=== PATIENT | female | born 1990 | race Caucasian/White ===

== ENCOUNTER 2019-01-16 10:09 | Emergency (ER) | payer MEDICAID, SELFPAY ==
[2019-01-16 10:11] VITALS: BP 166/98; PULSE 65; RESP 18; TEMP 36.6; O2SAT 99; BMI 36.0
--- NOTE | 2019-01-16 10:20 | CT_ITS ---
STUDY: CT ABDOMEN AND PELVIS WITHOUT CONTRAST REASON FOR EXAM: Female, 28 years old. Right-sided flank pain. RADIATION DOSAGE (If Supplied By Facility): CTDIvol = ( 11.54 ) mGy, DLP = ( 724.01 ) mGycm TECHNIQUE: Transaxial images were obtained from the dome of the diaphragm to the symphysis pubis without oral contrast, and without intravenous contrast. Sagittal and coronal images were reconstructed. Individualized dose optimization techniques were used for this CT. COMPARISON: None. FINDINGS: Lung bases: Unremarkable. Heart: Unremarkable. Liver: Hepatic steatosis. No focal hepatic lesions. Gallbladder/biliary ducts: Unremarkable. Pancreas: Unremarkable. Spleen: Unremarkable. Adrenal glands: Unremarkable. Kidneys/ureters/bladder: Nondilated ureters. Bilateral symmetric noncontrast renal parenchyma. Normal urinary bladder. Uterus/adnexa/prostate: Small left cystic adnexa. Slightly distended endometrial canal (axial image 141 series 2). Slightly bulky uterus. Large bowel/small bowel: Mild fat placement within the colonic wall suggesting potential chronic bowel disease. No acute inflammatory changes. No perforation. No obstruction. No pneumatosis. Appendix: Unremarkable (axial image 83 series 2). Gastroesophageal junction/stomach: Unremarkable. Retroperitoneum/lymph nodes: No intra-abdominal free air. No ascites. No pathologically enlarged lymph nodes. Vascular: Unremarkable. Osseous structures: Unremarkable. Subcutaneous/soft tissues: Small fat-containing ability hernia. No acute process. CT/Abdomen/Pelvis without Cont IMPRESSION: No acute intraabdominal/pelvic findings PHOTOGEOLOGIST findings statistically physiologic Consider possible mild chronic bowel disease Electronically Signed: Prasad Ansari DO at 12:23 EDT Tel , Service support ,
--- NOTE | 2019-01-16 10:40 | ED.VIS.GEN ---
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 She is had no fever urine outputs have been unremarkable Past Medical History - Allergies and Home Meds Allergies/Adverse Reactions: Allergies ciprofloxacin [From Cipro] Allergy (Verified 01/16/19 10:11) Swelling BEE Allergy (Uncoded 01/16/19 10:11) Anaphylaxis Past Medical History: - Review of Systems ROS: - Includes as above General: Denies: Chills, Fever, Sweats Eyes: Denies: Visual changes - bilaterally, Diplopia ENT: Denies: Rhinorrhea, Sore throat Cardiovascular: Denies: Chest pain, Palpitations Respiratory: Denies: Dyspnea, Cough, Dyspnea on exertion Gastrointestinal: Reports: Abdominal pain, Nausea, Diarrhea. Denies: Vomiting, Melena, Hematochezia Genitourinary: Denies: Dysuria, Hematuria, Frequency Musculoskeletal: Denies: Back pain, Extremity Pain Skin: Denies: Rash, Wounds Neurological: Denies: Headache, Weakness, Numbness Physical Exam Vital Signs/Narrative: Vital Signs Temp Pulse Resp BP Pulse Ox 01/16/19 10:11 97.8 F 65 18 166/98 H 99 General: Well nourished, Well developed, No Acute Distress Head: Normocephalic, Atraumatic Eyes: Perrl, EOMI ENT: Moist mucous membranes, No rhinorrhea Neck: Supple, Nontender Cardiovascular: Regular rate, Regular rhythm, No murmurs Respiratory: No distress, CTA bilaterally, Chest nontender Abdomen: Soft, Nontender, Nondistended, Normal bowel sounds, - - Very nonspecific pain to the right upper quadrant it is really hard to even describe his pain rather a sensation, there is no rebound guarding organomegaly or fullness Back: Nontender, Normal Inspection Extremities: Nontender, No edema Skin: Normal color, No rash Neurological: Alert, Oriented x3, Cranial nerves II-XII grossly intact, Normal Strength, Normal Sensation Psychological: Normal affect, Normal Mood Diagnostic/Tx/Re-eval - Medical Decision Making All the above fluids screening labs CT abdomen pelvis The patient's screening labs are generally unremarkable see those reports, the patient CT abdomen pelvis per radiology shows nothing acute see that report on reevaluation she is resting company in the bed of explained to the exact etiology of the sharp pain to the right upper quadrant is unclear again she is had this before indicates one point time she was told it may or may not be related to her gallbladder clinically she looks well given the negative work-up given that she is had this in the past she is couple discharge home she is referred to her primary care outpatient providers and also Dr. Oconnell on-call for surgery to be reevaluated as an outpatient bland diet and return for change in symptoms Home stable Intermittent right upper quadrant flank pain etiology unclear ED Disposition - Plan for ED Patient: Diagnosis: Right upper quadrant pain flank pain Instructions: FLANK PAIN, Uncertain Cause Referrals: Care Physician,No Primary [Primary Care Provider] - Dandy Oconnell MD [STAFF PHYSICIAN] -
[2019-01-16] MEDS: 0.9% Normal Saline 1,000 ML 250 ML IV (10:44)
[2019-01-16] MEDS: morphine 8 MG/ML Syringe IV (10:45)
[2019-01-16] MEDS: Ondansetron 4 MG/2 ML Vial IV (10:45)
[2019-01-16 11:04] LABS: Absolute Lymphocyte Count 1.24 X10^3/uL (0.83-4.51); Absolute Neutrophil Count 4.6 X10^3/uL (2.0-7.7); Basophil# 0.03 X10^3/uL; Basophil% 0.5 % (0-1); Eosinophil# 0.15 X10^3/uL; Eosinophils% 2.3 % (0-5); Hematocrit 39.7 % (37-47); Lymphocyte # 1.24 X10^3/ul (4.0); Lymphocyte % 19.2 % (19-41); Mean Corp Hgb Conc 32.7 g/dL (32-36); Mean Corpuscular Hgb 29.4 pg (27.0-32.0); Mean Corpuscular Volume 89.8 fL (81-99); Mean Platelet Vol. 10.4 fl (6.2-12.0); Monocyte# 0.41 X10^3/uL; Monocyte% 6.3 % (0-10); NRBC Flagged by Analyzer 0 % (0-5); Neutrophil # 4.61 X10^3/uL (2.7-7.7); Neutrophil % 71.2 % (47-70); Platelet Count 254 K/mm3 (150-450); RBC Distribution Width CV 12.5 % (11.6-14.6); RBC Distribution Width SD 41.1 fl (35.1-43.9); Red Blood Count 4.42 M/mm3 (4.2-5.4); White Blood Count 6.5 K/mm3 (4.4-11.0)
[2019-01-16 11:10] LABS: Internal QC Validated? YES +Cl - CLEAR BKGD; Pregnancy, Serum, hCG Quali. NEGATIVE Negative
[2019-01-16 11:15] LABS: Anion Gap 5 (5-15); BUN 9 mg/dL (7-18); BUN/Creat Ratio 12.1 RATIO (10-20); Calcium,Total 8.6 mg/dL (8.5-10.1); Chloride 105 mmol/L (98-107); Creatinine, Serum 0.74 mg/dL (0.55-1.02); EST Glomerular Filtration Rate 99 mL/min (>60); Est Glom Filt Rate - Afr Amer 120 mL/min (>60); Estimated Creatinine Clearance 89.52 ml/min; Glucose 89 mg/dL (74-106); Potassium 3.7 mmol/L (3.5-5.1); Sodium Level 139 mmol/L (136-145)
[2019-01-16 11:57] LABS: Lipase 85 U/L (73-393)
[2019-01-16 12:03] LABS: Bacteria 0 SEEN /hpf (None Seen); Mucous, Urine 0 SEEN /hpf (<or=2+); Red Blood Cells-Urine 0 SEEN /hpf (0-5); White Blood Cells 0 SEEN /hpf (0-5)
[2019-01-16 12:04] LABS: Color, Urine Yellow (Yellow); Glucose, Dipstick Normal (Normal); Ketone-Dipstick Negative (Negative); Leukocyte Esterase-Dipstick Negative /ul (Negative); Nitrite-Dipstick Negative (Negative); Occult Blood-Urine Negative /ul (Negative); Protein-Dipstick Negative (Negative); Urine Bilirubin Dipstick Negative (Negative); Urine Clarity Clear (Clear); Urine Urobilinogen Normal (Normal); Urine pH 6.5 (5.0 - 8.0)
[2019-01-16 12:07] LABS: AST(SGOT) 16 U/L (15-37); Alanine Aminotransfer ALT/SGPT 31 U/L (13-56); Albumin, Serum 3.9 g/dL (3.2-5.0); Alkaline Phosphatase 79 U/L (45-117); Bilirubin, Direct 0.14 mg/dL (0.00-0.30); Protein, Total 7.9 g/dL (6.4-8.2)
[2019-01-16 12:14] LABS: Squamous Epithelial Cells - UA 0-5 SEEN /hpf (5-10)
== END 2019-01-16 13:34 | disposition home or self-care (01) ==
PROVIDERS: Emergency Provider Emergency Medicine
DX: R10.11 Right upper quadrant pain (principal); R19.7 Diarrhea, unspecified; Z88.1 Allergy status to other antibiotic agents; Z87.19 Personal history of other diseases of the digestive system
CPT/HCPCS: 74176; 80048; 80076; 81001; 83690; 84703; 85025; 96361; 96374; 99283; J7030; A4216; J2405

== ENCOUNTER → 2019-01-31 11:58 | Outpatient (CLI) | payer MEDICAID, SELFPAY ==
[2019-01-28 07:39] VITALS: BMI 36.0
--- NOTE | 2019-01-31 12:00 | NM_ITS ---
CLINICAL: 28-year-old female with reported history of right upper quadrant abdominal pain. RADIONUCLIDE HEPATOBILIARY SCINTIGRAPHY COMPARISON: CT of the abdomen-pelvis report 01/16/2019 FINDINGS: Following the intravenous administration of 5.6 mCi of 99m Tc Mebrofenin, hepatobiliary images reveal: 1. Relatively prompt and homogeneous radiopharmaceutical concentration is noted by a normal sized liver. No parenchymal defects are identified. 2. Gallbladder activity is identified at 45 minutes post radiopharmaceutical administration. 3. Small intestinal tract is observed at 15 minutes following tracer injection. 4. Washout of the radiopharmaceutical by the hepatic parenchyma appears qualitatively normal. Cholecystokinin (0.02 ug/kg) was administered intravenously over a 30-minute period. The post CCK gallbladder ejection fraction calculated at 20 minutes following Cholecystokinin administration was noted to be 89.0 % (normal greater than 35%). During 30 minutes of post CCK imaging, there is no scintigraphic evidence of reflux of the radiotracer into the common hepatic duct or refilling of the gallbladder. NM/Hepatobilliary Img w/Pharm Int IMPRESSION: 1. NORMAL 99m Tc Mebrofenin hepatobiliary imaging examination with Cholecystokinin. A. A gallbladder ejection fraction calculated to be greater than 35% following the administration of Cholecystokinin makes the probability of functional hepatobiliary disease (gallbladder and/or sphincter of Oddi dyskinesia) and/or organic hepatobiliary disease (chronic acalculous cholecystitis and/or cystic duct syndrome) to be low. (Liliana Man et al, Journal of Nuclear Medicine 32:1695, 1990). Electronically Signed: Garry Maxwell DO at 12:08 EDT Tel , Service support ,
== END ==
PROVIDERS: Referring Provider Surgery; Visit Provider Surgery
DX: R10.11 Right upper quadrant pain (principal); R19.7 Diarrhea, unspecified
CPT/HCPCS: 78227; A9537; J2805

== ENCOUNTER → 2019-02-06 08:18 | Outpatient (CLI) | payer MEDICAID, SELFPAY ==
[2019-01-28 07:39] VITALS: BMI 36.0
--- NOTE | 2019-02-06 08:24 | US_ITS ---
STUDY: ABDOMINAL ULTRASOUND - RIGHT UPPER QUADRANT REASON FOR VISIT: Female, 28 years old right upper quadrant pain. TECHNIQUE: Ultrasound evaluation of the right upper quadrant was performed with real-time and static gallardo-scale imaging. TECHNICAL QUALITY: Adequate. COMPARISON: None. FINDINGS: Liver: The liver measures 14.5 cm. There is increased echogenicity consistent with fatty infiltration. The bile ducts are within normal limits. There is hepatic color flow. The direction of portal flow is hepatopetal. There is no demonstrated mass lesion. Gallbladder: Normal distended gallbladder. The gallbladder wall measures 2.6 mm. There is a negative sonographic Sanchez's sign. There is no pericholecystic fluid. There are no gallstones. Common Bile Duct (C.B.D.): The common bile duct measures 1.9 mm. Pancreas: Normal size of the head, body of the pancreas. The tail portion is obscured due to overlying bowel gas. There is normal echogenicity of the pancreas. There is no demonstrated pancreatic mass or cyst. Right Kidney: Normal size of the right kidney. The right kidney measures 10.4 cm x 4.5 cm x 5.0 cm. Normal renal cortex. The right cortex measures 1.5 cm. There is no demonstrated renal mass or cyst. There is no right hydronephrosis. US/Gallbladder IMPRESSION: Fatty infiltration of the liver. Electronically Signed: Mannie Portillo, at 15:22 EST , Service support ,
== END ==
PROVIDERS: Referring Provider Surgery; Visit Provider Surgery
DX: R10.11 Right upper quadrant pain (principal); R19.7 Diarrhea, unspecified
CPT/HCPCS: 76705

== ENCOUNTER 2019-02-24 08:11 | Day surgery (SDC) | payer MEDICAID, SELFPAY ==
[2019-01-28 07:39] VITALS: BMI 36.0
--- NOTE | 2019-02-12 01:20 | HP_ITS ---
Intake Vital Signs 02/11/19 Blood Pressure 145/75 H 02/11/19 Blood Pressure Location Rt brachial 02/11/19 Blood Pressure Position Sitting 02/11/19 Respiratory Rate 20 H 02/11/19 Pulse Rate 77 02/11/19 Pulse Ox 98 Intake Visit Reasons: F/U Test Results Hida Scan & US [facility] Chief Complaint: discuss hida/US Eight Section Blower Required: No Is patient in pain?: No Allergies ciprofloxacin [From Cipro] Allergy (Verified 02/11/19 09:44) Swelling BEE Allergy (Uncoded 01/16/19 10:11) Anaphylaxis Medications NK 01/16/19 [History Confirmed 02/11/19] Is last menstrual period known: No Post menopausal: No Patient : No [facility] Medical History Abdominal pain (Acute) Surgical History History of section (Acute) Family History Father Colon cancer Grandfather Colon cancer Grandmother Cancer cervical Social History (Updated 02/12/19 @ 13:21 by Dandy Oconnell MD) Smoking Status: Never smoker alcohol intake: never substance use type: does not use HPI HPI HPI: LUKE CAMPBELL, is a 28 F who presents to the office today for HPI HPI Surgical H&P: Yes HPI: LUKE CAMPBELL is a 28 F who presents to the office today for Follow-up from a gallbladder ultrasound and HIDA scan with ejection fraction gallbladder ultrasound was completed at [facility] on 02/06/2019 that showed only showed fatty liver changes common bile duct was 1.9 mm in diameter and the gallbladder wall was 2.6 mm in greatest diameter there were no gallstones no pericholecystic fluid and no sludge. Her HIDA scan showed that she had an ejection fraction which was elevated at 89%. Patient also noted that when she was undergoing a HIDA scan she had significant right upper quadrant abdominal distress almost as if she was having a fatty meal.. Patient was seen at [facility]'s emergency department on 01/16/2019. She was having right upper quadrant right-sided abdominal pain which was associated with loose stools and at times diarrhea like stools. She is still experiencing the right upper quadrant abdominal pain but not quite as bad as it was when she was at the emergency department.She has had no Fever or chills she has had some nausea but no vomiting. She has not been around anyone that is sick. When she was in [place] she was actually in the hospital and being treated for diverticulitis and that was back in 2017 but she had no further follow-up or work-up by the surgeon at that time. Patient states that her father had colon cancer which was diagnosed in his early 50s and he when he was 53 from metastatic colon cancer. She herself is never had a colonoscopy. Patient had a CAT scan of the abdomen and pelvis while she was in the emergency department which was read as no acute intra-abdominal or pelvic findings. Consider possible mild chronic bowel disease. 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 ROS General General: Yes fatigue; no weight change, appetite, colon cancer, breast cancer or weakness HEENT HEENT: No difficulty swallowing, eye injury, eye surgery, swollen glands or hoarseness Endo Endocrine: No thyroid disease, diabetes mellitus, thyroid cancer, Hair loss, heat intolerance or cold intolerance Skin Skin: No rash or changing moles Breast Breast: No left breast lump, right breast lump, nipple discharge, breast pain, abnormal mammogram, abnormal US or breast enlargement Musc Musculoskeletal: No back problems, arthritis, rheumatoid arthritis, gout or joint pain Cardio Cardiovascular: No murmur, pacemaker, heart disease, atrial fibrillation, high blood pressure, heart attack, heart stent, palpitations, shortness of breat with exertion or chest pain Psych Psychiatric: No depression, anxiety or hearing voices Resp Respiratory: No shortness of breath, No sleep apnea, No cough, No COPD, No asthma, No emphysema, No wheezing Gastro Gastrointestinal: Yes abdominal pain, Yes nausea or vomiting, No diarrhea, No constipation, No blood in stool, No acid reflux, No hemorrhoids, No ulcers, No gallbladder problem, No black,tarry stools Charanjit Hematologic: No blood thinners, No blood disorders, No bleeding, No anemia, No blood clots Neuro Neurologic: No weakness Exam Const General: no acute distress, well developed, well hydrated Orientation: oriented to person, oriented to place, oriented to time [facility] Head: normocephalic, atraumatic Ears: external ears normal Mouth: moist mucous membranes Eyes Sclera: sclerae normal Pupils: normal by confrontation Neck Neck: no lymphadenopathy noted Neck mass: No Thyroid: thyroid normal, symmetrical Chest Chest palpation & inspection: normal inspection of the chest Breast Palpation: No nipple discharge Resp Effort & Inspection: normal respiratory effort Auscultation: clear to auscultation bilaterally Percussion: percussion normal Cardio Rate: regular rate Rhythm: regular rhythm Heart Sounds: no murmurs GI Palpation: soft, no hepatosplenomegaly, no masses, tender Auscultation: normal bowel sounds Rectal Exam: other Other: Rectal exam deferred. Extrem General: normal to inspection, no clubbing, cyanosis or edema Assessment & Plan Problems 1. Diarrhea, unspecified type R19.7 2. Right upper quadrant abdominal pain R10.11 Plan I have discussed the above with the patient. I have offered the patient colonoscopy As well as an EGD for evaluation. I have explained the risks/benefits of the procedure and described the procedure. I have discussed the risks with the patient, including but not limited to: infection, bleeding, perforation of the GI tract requiring emergency surgery, inability to complete the procedure, injury to any internal organs, complications of anesthesia, etc. - the patient understands and agrees to proceed. I have answered all the patient's questions to the patient's satisfaction and the patient has no further questions. The patient has been given instructions for the colon cleansing preparation. We will be doing random colon biopsies as well as biopsies within the stomach and duodenum. Depending on what these results are I believe this patient has hyperkinesia of her gallbladder which is giving her her discomfort. Providing that there is no overt pathology found on either the upper and lower scope it will be my recommendation that we remove her gallbladder with a cholangiogram. Coding Level of Care Code Off vis,est,level 3 Diagnoses Diarrhea, unspecified type R19.7 ??Diarrhea type: unspecified type Right upper quadrant abdominal pain R10.11 02/12/19 1321 <Electronically signed by Dandy castorena MD> Date _ Dandy Oconnell MD I have re-examined the patient. There are no clinical changes since date of exam.
[2019-02-24 08:41] VITALS: BP 114/58; PULSE 60; RESP 14; TEMP 36.7; O2SAT 99; BMI 34.9
[2019-02-24 08:45] LABS: Internal QC Validated? YES +Cl - CLEAR BKGD; Pregnancy, Urine Negative Negative
--- NOTE | 2019-02-24 09:15 | IMM_PTH ---
PATIENT: LUKE CAMPBELL LOC: EN U#:[id number] AGE/SX: 28/F ROOM: RE02/24/[address]: Dr. Dandy Oconnell MD : 1990 BED: DIS: 02/24/2019 SPEC #: [id number] RECD: 02/24/19 12:48 STATUS: ELTON REQ #: [id number] BASHIR: 02/24/19 09:[address]: Dandy Oconnell DEPT: IMMUNOHISTOCHEMISTRY RECD BY: Lizzy Ritter ENTERED: 02/24/19 12:48 SP TYPE: IMMUNO OTHR DR: No Primary Care Phys Tissues: B - Stomach, NOS Procedures: H Pylori (initial) PHYSICIAN & INSTITUTION [place] [address] SPECIMEN INFORMATION: Tissue Source: B - Antrum biopsy Clinical Info: Diarrhea, right upper quadrant pain Specimen Number: [id number] CPT code: 78659 METHODOLOGY: Deparaffinized sections of prefer/formalin-fixed tissue or PAP/DQ stained slides are incubated with monoclonal/polyclonal antibodies/oligonucleotide probes. Localization is made via biotin free immunoperoxidase method. Appropriate controls are performed and reacted as expected. Results on target cell population are indicated in the following table: RESULTS: ANTIBODY / CLONE RESULT Block B H Pylori (polyclonal) negative These tests were developed and their performance characteristics determined by [facility]. They may not have been cleared or approved by the U.S. Food and Drug Administration. The FDA has determined that such clearance or approval is not necessary. INTERPRETATION: B. Antrum biopsy: Negative for Helicobacter pylori organisms. SJ:rosalind 02/25/19
--- NOTE | 2019-02-24 09:15 | EGD_PTH ---
PATIENT: LUKE CAMPBELL LOC: EN U#:[id number] AGE/SX: 28/F ROOM: RE02/24/[address]: Dr. Dandy Oconnell MD : 1990 BED: DIS: 02/24/2019 SPEC #: [id number] RECD: 02/24/19 10:15 STATUS: ELTON JOSE #: [id number] BASHIR: 02/24/19 09:[address]: Dandy Oconnell DEPT: SURGICAL PATHOLOGY RECD BY: Alexis Pandya ENTERED: 02/24/19 11:21 SP TYPE: EGD BIOPSY OTHR DR: No Primary Care Phys Tissues: A - Duodenum, NOS B - Gastric mucous membrane C - COLON BIOPSY Procedures: Surgery Specimen Level IV HEADER OPERATION: [place] [place] DIAGNOSIS: Diarrhea, right upper quad pain TISSUE SUBMITTED: A. Duodenum biopsy, B. Antrum biopsy for H. pylori and path, C. Random colon biopsies MICROSCOPIC DIAGNOSIS A. Duodenum, biopsy: A fragment of duodenal mucosa, no pathologic diagnosis. B. Antrum biopsy: Mild gastritis. See microscopic description and comment. C. Colon, random biopsy: Fragments of colonic mucosa, no pathologic diagnosis. SJ:rosalind 02/25/19 COMMENT B. The results of immunohistochemistry for Helicobacter pylori will be reported separately ([id number]). MICROSCOPIC DESCRIPTION Slides are reviewed. B. The specimen shows fragments of gastric mucosa with chronic inflammatory cell infiltrates in the lamina propria consisting of lymphocytes and plasma cells, consistent with mild chronic gastritis. GROSS DESCRIPTION A - Received in fixative is one container labeled with the patient's name and designated duodenum biopsy. The specimen consists of one irregular fragment of light dorman soft tissue that measures 0.4 x 0.3 x 0.1 cm. The specimen is totally submitted in one cassette. B - Received in fixative is one container labeled with the patient's name and designated antrum biopsy. The specimen consists of one irregular fragment of light dorman soft tissue that measures 0.7 x 0.3 x 0.1 cm. The specimen is totally submitted in one cassette. C - Received in fixative is one container labeled with the patient's name and designated random colon biopsy. The specimen consists of multiple irregular fragments of light dorman soft tissue that in aggregate measure 1.5 x 0.5 x 0.1 cm. The specimen is totally submitted in one cassette. / SJ:rg 02/24/19 TC:3 CPT: 38712 x3
[2019-02-24] MEDS: Lactated Ringers 1,000 ML 100 ML IV (09:33)
[2019-02-24 10:00] VITALS: BP 114/58; BP 92/53; PULSE 77; RESP 16; TEMP 37; O2SAT 96
--- NOTE | 2019-02-24 10:00 | OP.EGD_ITS ---
Patient Name: Halima Marroquin Procedure Date: 02/24/2019 9:27 AM Date of : 1990 Age: 28 Procedure: Upper GI endoscopy Indications: Abdominal pain in the right upper quadrant, Diarrhea Providers: Dandy Oconnell MD Referring MD: Dandy Oconnell MD Medicines: See the Anesthesia note for documentation of the administered medications Patient Profile: This is a 28 year old female. Refer to note in patient chart for documentation of history and physical. Complications: No immediate complications. Procedure: Pre-Anesthesia Assessment: - Prior to the procedure, a History and Physical was performed, and patient medications and allergies were reviewed. The patient's tolerance of previous anesthesia was also reviewed. The risks and benefits of the procedure and the sedation options and risks were discussed with the patient. All questions were answered, and informed consent was obtained. Prior Anticoagulants: The patient has taken no previous anticoagulant or antiplatelet agents. ASA Grade Assessment: II - A patient with mild systemic disease. After reviewing the risks and benefits, the patient was deemed in satisfactory condition to undergo the procedure. After obtaining informed consent, the endoscope was passed under direct vision. Throughout the procedure, the patient's blood pressure, pulse, and oxygen saturations were monitored continuously. The gastroscope was introduced through the mouth, and advanced to the second part of duodenum. The upper GI endoscopy was accomplished without difficulty. The patient tolerated the procedure well. Scope In: 9:40:45 AM Scope Out: 9:43:14 AM Total Procedure Duration Time 0 hours 2 minutes 29 seconds Findings: The examined esophagus was normal. The entire examined stomach was normal. Biopsies were taken with a cold forceps for Helicobacter pylori testing. The examined duodenum was normal. Biopsies for histology were taken with a cold forceps for evaluation of celiac disease. Impression: - Normal esophagus. - Normal stomach. Biopsied. - Normal examined duodenum. Biopsied. Recommendation: - Await pathology results. - Repeat upper endoscopy (date not yet determined) for surveillance. - Return to my office in 1 week. - Continue present medications. Procedure Code(s): --- Professional --- 34329, Esophagogastroduodenoscopy, flexible, transoral; with biopsy, single or multiple Diagnosis Code(s): --- Professional --- R10.11, Right upper quadrant pain R19.7, Diarrhea, unspecified CPT copyright 2017 [employer]. All rights reserved. The codes documented in this report are preliminary and upon dipper fish review may be revised to meet current compliance requirements. MD Dandy Nguyễn MD 02/24/2019 9:59:48 AM This report has been signed electronically. Number of Addenda: 0 Note Initiated On: 02/24/2019 9:27 AM
--- NOTE | 2019-02-24 10:02 | OP.COLON_ITS ---
Patient Name: Halima Marroquin Procedure Date: 02/24/2019 9:44 AM Date of : 1990 Age: 28 Procedure: Colonoscopy Indications: Abdominal pain in the right upper quadrant, Chronic diarrhea Providers: Dandy Oconnell MD Referring MD: Dandy Oconnell MD Medicines: See the Anesthesia note for documentation of the administered medications Patient Profile: This is a 28 year old female. Refer to note in patient chart for documentation of history and physical. Last Colonoscopy: none. The patient's first colonoscopy is today. Last Colonoscopy: date unknown. Unable to locate last colonoscopy report. Complications: No immediate complications. Procedure: Pre-Anesthesia Assessment: - Prior to the procedure, a History and Physical was performed, and patient medications and allergies were reviewed. The patient's tolerance of previous anesthesia was also reviewed. The risks and benefits of the procedure and the sedation options and risks were discussed with the patient. All questions were answered, and informed consent was obtained. Prior Anticoagulants: The patient has taken no previous anticoagulant or antiplatelet agents. ASA Grade Assessment: II - A patient with mild systemic disease. After reviewing the risks and benefits, the patient was deemed in satisfactory condition to undergo the procedure. After I obtained informed consent, the scope was passed under direct vision. Throughout the procedure, the patient's blood pressure, pulse, and oxygen saturations were monitored continuously. The colonoscope was introduced through the anus and advanced to the cecum, identified by appendiceal orifice and ileocecal valve. The colonoscopy was performed without difficulty. The patient tolerated the procedure well. The quality of the bowel preparation was good. Scope In: 9:45:35 AM Scope Withdrawal Time 0 hours 6 minutes 29 seconds Scope Out: 9:55:17 AM Total Procedure Duration Time 0 hours 9 minutes 42 seconds Findings: The colon (entire examined portion) appeared normal. Biopsies for histology were taken with a cold forceps from the entire colon for evaluation of microscopic colitis. The entire examined colon appeared normal on direct and retroflexion views. Impression: - The entire examined colon is normal. Biopsied. - The entire examined colon is normal on direct and retroflexion views. Recommendation: - Discharge patient to home. - Resume previous diet. - Continue present medications. - Await pathology results. - Repeat colonoscopy in 10 years for screening purposes. - Return to my office in 1 week. Procedure Code(s): --- Professional --- 96687, Colonoscopy, flexible; with biopsy, single or multiple Diagnosis Code(s): --- Professional --- R10.11, Right upper quadrant pain K52.9, Noninfective gastroenteritis and colitis, unspecified CPT copyright 2017 [employer]. All rights reserved. The codes documented in this report are preliminary and upon blood bank specialist review may be revised to meet current compliance requirements. MD Dandy Nguyễn MD 02/24/2019 10:02:09 AM This report has been signed electronically. Number of Addenda: 0 Note Initiated On: 02/24/2019 9:44 AM
[2019-02-24 10:05] VITALS: BP 114/58; BP 92/50; PULSE 78; RESP 16; O2SAT 96
[2019-02-24 10:10] VITALS: BP 114/58; BP 98/52; PULSE 67; RESP 16; O2SAT 97
[2019-02-24 10:15] VITALS: BP 100/56; BP 114/58; PULSE 55; RESP 16; TEMP 36.2; O2SAT 100
[2019-02-24 10:40] VITALS: BP 114/58
== END 2019-02-24 10:52 | disposition home or self-care (01) ==
LOC: EN 08:11 → AC 08:13
PROVIDERS: Anesthesiology; Referring Provider Surgery; Visit Provider Surgery
PROC: 0DJD8ZZ Inspection of Lower Intestinal Tract, Via Natural or Artificial Opening Endoscopic (ICD-10-PCS; CPT 45378; principal; 2019-02-24 09:10)
DX: R10.11 Right upper quadrant pain (principal); K29.70 Gastritis, unspecified, without bleeding; K52.9 Noninfective gastroenteritis and colitis, unspecified; Z87.19 Personal history of other diseases of the digestive system
CPT/HCPCS: 43239; 45380; 81025; 88305; 88342; J7120; J2405

== ENCOUNTER 2019-03-22 00:31 | Emergency (ER) | payer MEDICAID, SELFPAY ==
[2019-03-04 09:32] VITALS: BMI 35.1
[2019-03-22 00:34] VITALS: BP 175/99; PULSE 81; RESP 16; TEMP 36.8; O2SAT 98; BMI 34.7
--- NOTE | 2019-03-22 00:48 | ED.VISSUMM ---
- ER Visit Summary Date of Service: 03/22/19 Chief Complaint: Headache History of Present Illness: The patient is a 28 F with a headache that started 3 days ago. It started in the frontal region and progressed over the right side. She has been taking Tylenol, ibuprofen, Excedrin, and increasing her fluid intake, but nothing seems to help. She denies any inciting factors, trauma. Denies blood thinner use. Denies any other associated symptoms except for some nausea. No weakness or numbness. No vomiting. No rashes. No fevers. Physical Examination: Afebrile and vital signs unremarkable except for blood pressure 175/99. Patient appears uncomfortable, sitting in a dark room. No acute distress. HEENT exam unremarkable. Neck nontender with good range of motion. Cranial nerves grossly intact. Normal strength and sensation. Test Results: None indicated Emergency Department Course and Treatment: Patient has a recurrent headache similar to prior migraines. No red flag features. Will treat with Compazine, Benadryl, and Toradol. She does have her friend/roommate who is coming to help get her home safely with her child. Will reassess. Patient notified me that her ride had to leave and she was requesting discharge. She said she was feeling better. Treatment Plan: As above Disposition: Discharge Impression: 1. Headache This note was generated with [employer] dictation software. It may contain incorrect words, spelling, and punctuation that were not noted in review of the chart prior to signing ED Disposition - Plan for ED Patient: Referrals: Care Physician,No Primary [Primary Care Provider] -
[2019-03-22] MEDS: proCHLORPERazine 10 MG/2 ML Vial IV (01:01)
[2019-03-22] MEDS: DiphenhydrAMINE 50 MG/ML Syringe 25 MG IV (01:02)
[2019-03-22] MEDS: Ketorolac 30 MG/ML Syringe IV (01:03)
--- NOTE | 2019-03-22 01:23 | ED.DEP ---
ED Disposition - Plan for ED Patient: Instructions: HEADACHE, Unspecified Referrals: Care Physician,No Primary [Primary Care Provider] -
== END 2019-03-22 01:28 | disposition home or self-care (01) ==
LOC: ED 01:03
PROVIDERS: Emergency Provider Emergency Medicine
DX: R51 Headache (principal); R11.0 Nausea
CPT/HCPCS: 96374; 96375; 99283; A4216

== ENCOUNTER 2019-05-29 05:36 | Day surgery (SDC) | payer MEDICAID, SELFPAY ==
--- NOTE | 2019-05-22 01:37 | HP_ITS ---
Intake Vital Signs 05/22/19 BMI 34.7 05/22/19 Height 5 ft 2 in 05/22/19 Weight: 190 lb 05/22/19 BMI 34.7 05/22/19 BP 151/93 H 05/22/19 Blood Pressure Location Rt brachial 05/22/19 Position Sitting 05/22/19 Respiration 18 05/22/19 Pulse 84 05/22/19 Pulse Source Monitor 05/22/19 Temp 98.0 F 05/22/19 Temp Source Oral 05/22/19 Pulse Oximetry (%) 100 05/22/19 Oxygen Delivery Method room air Intake Visit Reasons: Update H/P Gall Bladder Surgery Seen DP 03/20 Chief Complaint: discuss gallbladder surgery Alumni Secretary Required: No Is patient in pain?: No Allergies ciprofloxacin [From Cipro] Allergy (Verified 05/22/19 13:32) Swelling BEE Allergy (Uncoded 03/22/19 00:32) Anaphylaxis Medications NK 01/16/19 [History Confirmed 05/22/19] PFSH Medical History Abdominal pain (Acute) Surgical History History of esophagogastroduodenoscopy (EGD) (Acute) Hx of colonoscopy (Acute) History of section (Acute) Family History Father Colon cancer Grandfather Colon cancer Grandmother Cancer cervical Social History (Updated 05/22/19 @ 13:[address] Dandy Oconnell MD) Smoking Status: Never smoker alcohol intake: never substance use type: does not use HPI HPI HPI: LUKE CAMPBELL is a 28 F who presents to the office today for HPI HPI Surgical H&P: Yes HPI: LUKE CAMPBELL is a 28 F who presents to the office today for follow-up from an EGD and colonoscopy completed it was [facility] on 02/24/2019 her upper scope showed some mild gastritis and H. pylori was negative. I did a biopsy of her duodenum which showed no pathologic diagnosis. Her colonoscopy was essentially negative I did random colon biopsies which showed no pathologic problem. And obviously no evidence of microscopic colitis. I had her follow-up from a gallbladder ultrasound and HIDA scan with ejection fraction gallbladder ultrasound was completed at [facility] on 02/06/2019 that showed only showed fatty liver changes common bile duct was 1.9 mm in diameter and the gallbladder wall was 2.6 mm in greatest diameter there were no gallstones no pericholecystic fluid and no sludge. Her HIDA scan showed that she had an ejection fraction which was elevated at 89%. Patient also noted that when she was undergoing a HIDA scan she had significant right upper quadrant abdominal distress almost as if she was having a fatty meal. Patient also states that it really does not matter what she eats she will Developed right upper quadrant abdominal discomfort even if she drinks a large amount of water this pain and discomfort comes on. Patient was seen at [facility] emergency department on 01/16/2019. She was having right upper quadrant right-sided abdominal pain which was associated with loose stools and at times diarrhea like stools. She is still experiencing the right upper quadrant abdominal pain but not quite as bad as it was when she was at the emergency department.She has had no Fever or chills she has had some nausea but no vomiting. She has not been around anyone that is sick. When she was in [place] she was actually in the hospital and being treated for diverticulitis and that was back in 2017 but she had no further follow-up or work-up by the surgeon at that time. Patient states that her father had colon cancer which was diagnosed in his early 50s and he when he was 53 from metastatic colon cancer. She herself is never had a colonoscopy. Patient had a CAT scan of the abdomen and pelvis while she was in the emergency department which was read as no acute intra-abdominal or pelvic findings. Consider possible mild chronic bowel disease. 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 At this point I do not think we have any other resource but to take out her gallbladder. ROS General General: Yes fatigue; no weight change, appetite, colon cancer, breast cancer or weakness HEENT HEENT: No difficulty swallowing, eye injury, eye surgery, swollen glands or hoarseness Endo Endocrine: No thyroid disease, diabetes mellitus, thyroid cancer, Hair loss, heat intolerance or cold intolerance Skin Skin: No rash or changing moles Breast Breast: No left breast lump, right breast lump, nipple discharge, breast pain, abnormal mammogram, abnormal US or breast enlargement Musc Musculoskeletal: No back problems, arthritis, rheumatoid arthritis, gout or joint pain Cardio Cardiovascular: No murmur, pacemaker, heart disease, atrial fibrillation, high blood pressure, heart attack, heart stent, palpitations, shortness of breat with exertion or chest pain Psych Psychiatric: No depression, anxiety or hearing voices Resp Respiratory: No shortness of breath, No sleep apnea, No cough, No COPD, No asthma, No emphysema, No wheezing Gastro Gastrointestinal: Yes abdominal pain, Yes nausea or vomiting, No diarrhea, No constipation, No blood in stool, No acid reflux, No hemorrhoids, No ulcers, No gallbladder problem, No black,tarry stools Charanjit Hematologic: No blood thinners, No blood disorders, No bleeding, No anemia, No blood clots Neuro Neurologic: No weakness Exam Const General: no acute distress, well developed, well hydrated Orientation: oriented to person, oriented to place, oriented to time [facility] Head: normocephalic, atraumatic Ears: external ears normal Mouth: moist mucous membranes Eyes Sclera: sclerae normal Pupils: normal by confrontation Neck Neck: no lymphadenopathy noted Neck mass: No Thyroid: thyroid normal, symmetrical Chest Chest palpation & inspection: normal inspection of the chest Breast Palpation: No nipple discharge Resp Effort & Inspection: normal respiratory effort Auscultation: clear to auscultation bilaterally Percussion: percussion normal Cardio Rate: regular rate Rhythm: regular rhythm Heart Sounds: no murmurs GI Palpation: soft, no hepatosplenomegaly, no masses, tender Auscultation: normal bowel sounds Rectal Exam: other Other: Rectal exam deferred. Extrem General: normal to inspection, no clubbing, cyanosis or edema Assessment & Plan Problems 1. Biliary colic symptom K80.50 2. Diarrhea, unspecified type R19.7 3. Right upper quadrant abdominal pain R10.11 Plan Reviewed the anatomy with the patient and discussed the procedure: laparoscopic cholecystectomy with possible cholangiograms, possible open. Review risks including but not limited to bleeding, infection, hernia, bile leak, retained gallstones requiring another procedure ERCP- Endoscopic Retrograde Cholangiopancreatography, injury to another organ (bile ducts, common bile duct, small bowel, etc.) and conversion to an open procedure. All questions were answered. Patient understands that there is least a 30 to 35% chance this may do nothing for her discomfort. She is still willing to proceed. Patient also understands that her symptoms could actually get worse. Coding Level of Care Code Off vis,est,level 3 Diagnoses Biliary colic symptom K80.50 Diarrhea, unspecified type R19.7 ??Diarrhea type: unspecified type Right upper quadrant abdominal pain R10.11 05/22/19 1338 <Electronically signed by Dandy castorena MD> Date _ Dandy Oconnell MD I have re-examined the patient. There are no clinical changes since date of exam.
[2019-05-22 13:32] VITALS: BMI 34.7
[2019-05-29] VITALS (19 sets, daily range): BP systolic 103–142; BP diastolic 32–92; PULSE 57–102; RESP 15–16; TEMP 36.3–37.1; O2SAT 92–99; BMI 34.3
--- NOTE | 2019-05-29 05:43 | EKG12_ITS ---
Test Reason : PRE-OP Blood Pressure : / mmHG Vent. Rate : 063 BPM Atrial Rate : 063 BPM P-R Int : 120 ms QRS Dur : 078 ms QT Int : 390 ms P-R-T Axes : 031 023 027 degrees QTc Int : 399 ms Normal sinus rhythm Normal ECG No previous ECGs available Confirmed by BEV LITTLEJOHN, BG ([id number]), production editor LILLIE HANSEN ([id number]) on 06/02/2019 9:02:20 AM Referred By: Dandy Oconnell Confirmed By:SANDRA PABLO MD
[2019-05-29 05:59] LABS: Internal QC Validated? YES +Cl - CLEAR BKGD; Pregnancy, Urine Negative Negative
[2019-05-29] MEDS: Lactated Ringers 1,000 ML 100 ML IV (06:25)
[2019-05-29 06:27] LABS: Hematocrit 36.6 % (37-47); Hemoglobin 12.1 g/dL (12.0-15.0); Mean Corp Hgb Conc 33.1 g/dL (32-36); Mean Corpuscular Hgb 29.3 pg (27.0-32.0); Mean Corpuscular Volume 88.6 fL (81-99); Mean Platelet Vol. 10.5 fl (6.2-12.0); Platelet Count 212 K/mm3 (150-450); RBC Distribution Width CV 12.3 % (11.6-14.6); RBC Distribution Width SD 40.1 fl (35.1-43.9); Red Blood Count 4.13 M/mm3 (4.2-5.4); White Blood Count 5.3 K/mm3 (4.4-11.0)
[2019-05-29 06:39] LABS: International Normalized Ratio 1.1; Prothrombin Time (Protime)PT. 14.2 SECONDS (11.7-14.9)
[2019-05-29 06:40] LABS: Partial Thromboplast Time 37.1 Seconds (24.1-36.2)
[2019-05-29 06:46] LABS: AST(SGOT) 13 U/L (15-37); Alanine Aminotransfer ALT/SGPT 33 U/L (13-56); Albumin, Serum 3.3 g/dL (3.2-5.0); Alkaline Phosphatase 75 U/L (45-117); Globulin 3.9 g/dL (2.2-4.2); Protein, Total 7.2 g/dL (6.4-8.2)
[2019-05-29] MEDS: Cefazolin 2 GM in 0.9% Normal Saline 100 ML IV (07:18)
--- NOTE | 2019-05-29 07:30 | GALL_PTH ---
PATIENT: LUKE CAMPBELL LOC: [facility] U#:[id number] AGE/SX: 28/F ROOM: RE05/29/[address]: Dr. Dandy Oconnell MD : 1990 BED: DIS: 05/29/2019 SPEC #: [id number] RECD: 05/29/19 10:01 STATUS: ELTON JOSE #: [id number] BASHIR: 05/29/19 07:[address]: Dandy Oconnell DEPT: SURGICAL PATHOLOGY RECD BY: Rafael Fairbanks ENTERED: 05/29/19 10:35 SP TYPE: ASCENCION HUNTER DR: No Primary Care Phys Tissues: Gallbladder, NOS Procedures: Surgery Specimen Level III HEADER OPERATION: Laparoscopic cholecystectomy PRE-OP DIAGNOSIS: Biliary colic K80.50, diarrhea R19.7,right upper quadrant abdominal pain R10.11 TISSUE SUBMITTED: Gallbladder MICROSCOPIC DIAGNOSIS Gallbladder, cholecystectomy: Cholesterolosis and chronic cholecystitis. AM:rosalind 05/30/19 MICROSCOPIC DESCRIPTION Slides are reviewed. GROSS DESCRIPTION Received is one container labeled with the patient's name and designated gallbladder. The specimen consists of a gallbladder measuring 7.8 cm in length and up to 4 cm in diameter. The external surface is pink-dorman, smooth and glistening for the most part. Focally it is granular, hemorrhagic and contains cautery artifact. The gallbladder contains green-yellow mucoid bile. No stones are identified in the container or in the gallbladder. The mucosa is bile-stained and without any mass lesions. The gallbladder wall measures 0.1 cm in thickness. The mucosa also shows several yellowish streaks consistent with cholesterolosis. Profiling Machine Setup Operator sections from the gallbladder and the cystic duct are submitted in one cassette. / SJ:rosalind 05/29/19 TC:3 CPT: 44349
[2019-05-29] MEDS: Bupivacaine Mpf 0.5% 30 ML VIAL (07:57)
--- NOTE | 2019-05-29 07:58 | OP.PCM_ITS ---
Problem List (1) Biliary colic symptom Status: Acute (2) Right upper quadrant abdominal pain Status: Acute (3) Diarrhea, unspecified Status: Acute Qualifiers: Diarrhea type: unspecified type Qualified Code(s): R19.7 - Diarrhea, unspecified Report of Operation Date of Procedure: 05/29/19 Pre-Operative Diagnosis: 1. Biliary colic. 2. Right upper quadrant abdominal pain. 3. Diarrhea unspecified Post-Operative Diagnosis: Same Surgery/Procedure Performed:: Laparoscopic cholecystectomy Type of Anesthesia:: General Anesthesiologist: Clyde Sanabria Specimen's removed: Gallbladder Drains: None Estimated Blood Loss (mL): < 25 cc Fluids Replaced: 1 L LR Description of Procedure: Patient was brought into the operating room. Placed in the supine position. Under excellent general trach intubation the abdomen was sterilely prepped and draped in usual fashion. Local was injected infraumbilically. Dissection was carried down to the fascia. Fascia was grasped with a [place]. Varies needle was placed inside the abdomen. The abdomen was insufflated to 15 torr. A 10/12 trocar was placed without difficulty. Patient was placed in the head up and rotated to the left position. A subxiphoid #5 trochars placed, inferior to this another #5 trocar, and laterally a #5 trocar. All these were placed under direct visualization without injury to underlying structures. Fundus of the gallbladder was grasped retracted in a cephalad direction. Infundibulum was grasped retracted laterally. I dissected out the cystic duct and the cystic artery. Placed hemoclips proximally and distally on both of these and ligated them. Electrocautery was used for good pneumostasis and I brought the gallb ladder off of the liver using electrocautery. I had no spillage of bile or stones. I placed a specimen a specimen bag. I delivered through the umbilical port. Electrocautery was used on the liver bed for good pneumostasis. The trochars were removed under direct visualization good pneumostasis was noted. I closed the fascia the umbilical port with a [id number] stitch of 0 Vicryl. Skin incisions were closed with subcuticular stitches of 4-0 Monocryl. Steri- Strips were applied sterile dressings were applied and the patient tolerated the procedure well. - Admit VTE Documentation VTE Present on Admission: No VTE Mechan Device Prophylaxis: SCD's VTE Pharm Prophylaxis ordered?: No Reason prophylaxis not ordered:: Treatment Not Indicated
--- NOTE | 2019-05-29 08:04 | PCM.DC.GB ---
Discharge Diet: Light diet - advance as tolerated Discharge Activity: May Not Drive - for 2-3 days or while taking narcotic pain medications., - - Do not drive, work heavy equipment or sign legal documents for 24 hours. May shower in (days): 1 - with the bandage in place. Additional Activity Instructions:: Pain medication may cause nausea. You should typically eat light foods as you take your pain medications. Pain medication may also cause constipation. If this is a problem for you, please discuss with your doctor. Call your doctor if your incision/area has: Continuous Slow Oozing, Sudden Increased Bleeding, Increased Pain/ Swelling, Increased Redness, Foul Smelling Discharge Call your doctor if you observe: Fever of 101 or Higher Suture Line Care: Avoid Pulling/Pushing, Avoid Pinching/Bending Additional Dressing/Incision Instructions:: Leave operative bandaids on for 2 days. When you remove dressing, leave Steri-Strips on until your follow-up appointment, or until the Steri-Strips fall off on their own. Allergies/Adverse Reactions: Allergies ciprofloxacin [From Cipro] Allergy (Verified 05/29/19 06:08) Swelling BEE Allergy (Uncoded 05/29/19 06:08) Anaphylaxis Medications to take at Discharge Oxycodone HCl/Acetaminophen [Percocet 5/325] 1 - 2 tablet PO Q4H PRN PRN 6 Days #30 tablet 05/29/19 The following prescriptions were given: Oxycodone HCl/Acetaminophen [Percocet 5/325] 1 - 2 tablet PO Q4H PRN PRN 6 Days #30 tablet PRN Reason: Pain Transmission Status: Sent to [id number] Primary Care Physician: Care Physician,No Primary [Primary Care Provider] - Test Results: Test results from this visit will be discussed in further detail at your follow-up appointment, if applicable. Please Follow Up With: Dandy Oconnell MD - Please call [phone] to schedule an appointment. When: 7 days after your surgery.
== END 2019-05-29 13:46 | disposition home or self-care (01) ==
LOC: SDC 05:37 → AC 05:38
PROVIDERS: Anesthesiology; Referring Provider Surgery; Visit Provider Surgery
PROC: (CPT 47562; principal; 2019-05-29 07:10)
DX: K81.1 Chronic cholecystitis (principal); Z88.1 Allergy status to other antibiotic agents; Z80.0 Family history of malignant neoplasm of digestive organs
CPT/HCPCS: 00790; 47562; 36415; 80076; 81025; 85027; 85610; 85730; 88304; 93005; J7120; J2405

== ENCOUNTER 2021-04-18 13:07 | Outpatient (CLI) | payer MEDICAID, SELFPAY ==
--- NOTE | 2021-04-18 13:10 | US_ITS ---
STUDY: ULTRASOUND OF THE FEMALE PELVIS - COMPLETE REASON FOR EXAM: Female, 30 years old. Ovarian cyst -- LLQ Pain LMP: 04/01/2021. TECHNIQUE: Transabdominal and Transvaginal TECHNICAL QUALITY: Adequate. COMPARISON: None. FINDINGS: The uterus is anteverted and is in a midline position. The uterus measures 8.7 cm x 6.2 cm x 5.1 cm. There is a Nabothian cyst of the cervix. The endometrium measures 9 mm in thickness, and is hyperechoic. There is no demonstrated endometrial mass. There is no demonstrated myometrial mass. I.U.D. - The patient does not have an I.U.D. The right ovary is visualized. The right ovary measures 2 cm x 1.8 cm x 1.6 cm. There is no right ovarian cyst or ovarian mass. There is no visualized right adnexal mass or complex lesion. There is normal arterial and normal venous vascularity. The left ovary is visualized. The left ovary measures 2.3 cm x 1.8 cm x 1.2 cm. There is a 2.8 cm x 3.5 cm x 2.7 cm left adnexal cyst. There is no visualized left adnexal mass or complex lesion. There is normal arterial and normal venous vascularity. There is no fluid in the cul-de-sac. The pre void volume of the bladder was 96 ml. US/Transvaginal Non- IMPRESSION: 2.8 cm x 3.5 cm x 2.7 cm left adnexal cyst. Electronically Signed: Mannie Portillo MD at 14:24 EST , Service support ,
--- NOTE | 2021-04-18 13:10 | US_ITS ---
STUDY: ULTRASOUND OF THE FEMALE PELVIS - COMPLETE REASON FOR EXAM: Female, 30 years old. Ovarian cyst -- LLQ Pain LMP: 04/01/2021. TECHNIQUE: Transabdominal and Transvaginal TECHNICAL QUALITY: Adequate. COMPARISON: None. FINDINGS: The uterus is anteverted and is in a midline position. The uterus measures 8.7 cm x 6.2 cm x 5.1 cm. There is a Nabothian cyst of the cervix. The endometrium measures 9 mm in thickness, and is hyperechoic. There is no demonstrated endometrial mass. There is no demonstrated myometrial mass. I.U.D. - The patient does not have an I.U.D. The right ovary is visualized. The right ovary measures 2 cm x 1.8 cm x 1.6 cm. There is no right ovarian cyst or ovarian mass. There is no visualized right adnexal mass or complex lesion. There is normal arterial and normal venous vascularity. The left ovary is visualized. The left ovary measures 2.3 cm x 1.8 cm x 1.2 cm. There is a 2.8 cm x 3.5 cm x 2.7 cm left adnexal cyst. There is no visualized left adnexal mass or complex lesion. There is normal arterial and normal venous vascularity. There is no fluid in the cul-de-sac. The pre void volume of the bladder was 96 ml. US/Pelvic (Non ) IMPRESSION: 2.8 cm x 3.5 cm x 2.7 cm left adnexal cyst. Electronically Signed: Mannie Portillo MD at 14:24 EST , Service support ,
== END 2021-04-18 23:59 | disposition short-term general hospital (02) ==
LOC: US 13:09
PROVIDERS: Referring Provider Obstetrics & Gynecology; Visit Provider Obstetrics & Gynecology
DX: N83.209 Unspecified ovarian cyst, unspecified side (principal)
CPT/HCPCS: 76830; 76856

== ENCOUNTER 2021-05-09 10:41 | Emergency (ER) | payer MEDICAID, SELFPAY ==
[2021-05-09 10:49] VITALS: BP 152/92; PULSE 80; RESP 18; TEMP 36.6; O2SAT 100; BMI 36.9
--- NOTE | 2021-05-09 11:34 | RAD_ITS ---
STUDY: X-RAY - LEFT SHOULDER REASON FOR EXAM: Left shoulder pain, left shoulder injury. TECHNIQUE: 4 view(s) of the shoulder. COMPARISON: None. FINDINGS: Normal glenohumeral articulation. Normal acromioclavicular joint. Normal acromion. Normal humeral head and visualized proximal humerus. The soft tissue structures are unremarkable. Normal visualized pulmonary apex. RAD/Shoulder min 2 Views IMPRESSION: Normal x-ray examination of the left shoulder. Electronically Signed: Agustin Banda MD at 12:39 EST ,
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
[2021-05-09 11:59] LABS: Absolute Lymphocyte Count 1.06 X10^3/uL (0.83-4.51); Absolute Neutrophil Count 5.2 X10^3/uL (2.0-7.7); Basophil# 0.03 X10^3/uL; Basophil% 0.4 % (0-1); Eosinophil# 0.13 X10^3/uL; Eosinophils% 1.9 % (0-5); Hematocrit 40.2 % (37-47); Lymphocyte # 1.06 X10^3/ul (0.83-4.51); Lymphocyte % 15.5 % (19-41); Mean Corp Hgb Conc 34.8 g/dL (32-36); Mean Corpuscular Volume 88.9 fL (81-99); Mean Platelet Vol. 10.3 fl (6.2-12.0); Monocyte# 0.44 X10^3/uL; Monocyte% 6.4 % (0-10); NRBC Flagged by Analyzer 0 % (0-5); Neutrophil # 5.17 X10^3/uL (2.7-7.7); Neutrophil % 75.4 % (47-70); Platelet Count 286 K/mm3 (150-450); RBC Distribution Width CV 12.2 % (11.6-14.6); RBC Distribution Width SD 39.4 fl (35.1-43.9); Red Blood Count 4.52 M/mm3 (4.2-5.4); White Blood Count 6.9 K/mm3 (4.4-11.0)
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
[2021-05-09 12:15] LABS: D-Dimer Quantitative (DVT/PE) 0.45 FEU/ug/m (0.27-0.49)
[2021-05-09 12:20] LABS: Anion Gap 5 (5-15); BUN 10 mg/dL (7-18); BUN/Creat Ratio 13.9 RATIO (10-20); Calcium,Total 8.9 mg/dL (8.5-10.1); Chloride 109 mmol/L (98-107); Creatinine, Serum 0.72 mg/dL (0.55-1.02); EST Glomerular Filtration Rate 101 mL/min (>60); Est Glom Filt Rate - Afr Amer 122 mL/min (>60); Estimated Creatinine Clearance 90.36 ml/min; Glucose 106 mg/dL (74-106); Sodium Level 139 mmol/L (136-145); Thyroid Stim Hormone (TSH) 0.12 uIU/mL (0.358-3.74); Troponin-I HS 7 pg/mL (3.0-54.0)
[2021-05-09] MEDS: Acetaminophen 325 MG Tablet 650 MG PO (12:25)
[2021-05-09 14:02] LABS: Free T3 3.4 pg/mL (2.18-3.98); T4 Free Direct 1.24 ng/dL (0.76-1.46)
== END 2021-05-09 14:43 | disposition home or self-care (01) ==
PROVIDERS: Emergency Provider Emergency Medicine; Visit Provider Emergency Medicine
DX: S46.912A Strain of unspecified muscle, fascia and tendon at shoulder and upper arm level, left arm, initial encounter (principal); R00.2 Palpitations; R10.32 Left lower quadrant pain; V43.52XA Car driver injured in collision with other type car in traffic accident, initial encounter; Y92.413 State road as the place of occurrence of the external cause
CPT/HCPCS: 73000; 73030; 80048; 84439; 84443; 84481; 84484; 85025; 85379; 93005; 99285

== ENCOUNTER 2021-05-13 05:54 | Day surgery (SDC) | payer MEDICAID, SELFPAY ==
--- NOTE | 2021-05-06 09:25 | NURSING ---
during PAT phone interview, pt reports (+) COVID test on 04/21/21. Pt instructed to notify Dr Wills office. Pt verbalizes understanding.
[2021-05-09 11:57] LABS: Hematocrit 39.8 % (37-47); Hemoglobin 13.6 g/dL (12.0-15.0); Mean Corp Hgb Conc 34.2 g/dL (32-36); Mean Corpuscular Hgb 30.4 pg (27.0-32.0); Mean Platelet Vol. 10.4 fl (6.2-12.0); Platelet Count 269 K/mm3 (150-450); RBC Distribution Width CV 12.1 % (11.6-14.6); RBC Distribution Width SD 39.7 fl (35.1-43.9); Red Blood Count 4.47 M/mm3 (4.2-5.4)
[2021-05-09 12:15] LABS: AST(SGOT) 15 U/L (15-37); Alanine Aminotransfer ALT/SGPT 25 U/L (13-56); Albumin, Serum 3.7 g/dL (3.2-5.0); Alkaline Phosphatase 70 U/L (45-117); Anion Gap 6 (5-15); BUN 10 mg/dL (7-18); BUN/Creat Ratio 13.7 RATIO (10-20); Bilirubin, Direct 0.09 mg/dL (0.00-0.30); Calcium,Total 8.7 mg/dL (8.5-10.1); Chloride 109 mmol/L (98-107); Creatinine, Serum 0.73 mg/dL (0.55-1.02); EST Glomerular Filtration Rate 99 mL/min (>60); Est Glom Filt Rate - Afr Amer 120 mL/min (>60); Globulin 4.1 g/dL (2.2-4.2); Glucose 104 mg/dL (74-106); Protein, Total 7.8 g/dL (6.4-8.2); Sodium Level 139 mmol/L (136-145)
--- NOTE | 2021-05-12 16:59 | PCM.HP.BLA ---
History and Physical Date of Admission: 05/13/21 [facility] [id number] [place] [address] [phone] OFFICE VISITDate of Service: 04/11/21 MR#:[id number]:[id number]: LUKE CAMPBELL [facility] #:[id number]:1990 Provider:Dr. Aide Nick DOAge/Sex: 30/F [facility] Vital Signs 04/11/21 10:51 Height 5 ft 2 in Weight: 205 lb BMI 37.5 BP 120/88 H Intake Visit Reasons: NEW PT, REFERRAL OVARIAN CYST Adolescent Medicine Specialist Required: No Is patient in pain?: Yes Allergies ciprofloxacin [From Cipro] Allergy (Verified 04/11/21 10:52) Swelling ciprofloxacin HCl [From Cipro] Allergy (Verified 04/11/21 10:52) Swelling venom-honey bee [bee venom (honey bee)] Allergy (Verified 04/11/21 10:52) Swelling BEE Allergy (Uncoded 04/11/21 10:52) Anaphylaxis Medications NK 06/05/19 [History Confirmed 04/11/21] medroxyprogesterone 150 mg/mL intramuscular syringe 150 mg IM [id number] #1 ml 04/11/21 [Rx Confirmed 04/11/21] Post menopausal: No Patient : No : No PFSH Medical History (Updated 04/11/21 @ 12:[address] Aide Nick, ) Abdominal pain Surgical History History of section History of esophagogastroduodenoscopy (EGD) Hx of cholecystectomy Hx of colonoscopy Family History Father Colon cancer Grandfather Colon cancer Grandmother Cancer cervical Social History (Updated 04/11/21 @ 10:53 by Lanette Velasquez) Smoking Status: Never smoker alcohol intake: never substance use type: does not use caffeine: Yes what type of physical activity do you participate in: none seatbelt use: always do you feel safe at home: Yes additional social history: Single HPI NEW PT, REFERRAL OVARIAN CYST Details: LUKE CAMPBELL is a 30 year old who presents for discussion about pelvic pain. She has a history of ovarian cysts, the most recent being on her right side. She believes the cyst has recently ruptured and there may now be one on her left side. She has a history of 2 vaginal deliveries and 2 sections. 2 of her children are . (one shortly after giving at 28 weeks gestation, due to a heart defect. The other at age 5 months of age due to SIDS). She no longer wants to have any more children and is requesting a bilateral tubal ligation. She also would like to go back on depo provera to preven further cyst formation and to reduce pain and bleeding. Pregancy History 4 Elective abortions Hx Para 4 Spontaneous abortions Hx # Term Pregnancies Ectopic pregnancies Hx # Pregnancies Multiple births # of living children 2 Past Pregnancies Del. Date Name GA/Weeks Outcome [facility]th [facility] Elizabeth (mar) Unknown Keshawn Unknown Kemi (mar) Unknown Deng Delivery Date: Per patient she had a lot of health problems, after 4 days old Bryan,Lanette Delivery Date: No notes to display Delivery Date: SIDS at 5months Bryan,Sarona Delivery Date: No notes to display ROS Const ROS Unobtainable: All systems reviewed & are unremarkable except as noted in H Resp Resp: Reports system reviewed and no additional complaints, except as documented; Denies cough GI GI: Reports as per HPI Psych Psych: Reports system reviewed and no additional complaints, except as documented Exam Const General: cooperative, healthy appearing, comfortable and no acute distress Resp Effort & Inspection: normal respiratory effort Skin General: no rashes or lesions noted Psych Appearance: grossly normal Speech and Movement: speech and movement normal Coding Level of Care Code Off vis,new,level 4 Diagnoses Ovarian cyst N83.209 Contraceptive management Z30.9 Assessment and Plan Assessment and Plan (1) Ovarian cyst: Status: Acute (2) Contraceptive management: Status: Acute Orders: Orders: Pelvic (Non ) Today N83.209 Transvaginal Non- Today N83.209 Plan - Dr. Aide Nick, DO: Title 19 form signed today Plan to repeat ultrasound to document size and location of cyst Starting depo provera plan for laparoscopic bilateral salpingectomy after 30 days from singning papers today. Plan Details Other Medications: New: medroxyprogesterone (Depo-Provera) 150 mg IM [id number] 1 mL 4RF Other Orders: Orders: POC Urine Today N91.2 UPDATE- I have seen the patient and performed any clinically relevant updates to the history and physical exam. Aide Nick DO
[2021-05-13 06:15] VITALS: BP 146/76; PULSE 72; RESP 18; TEMP 36.4; O2SAT 100; BMI 37.0
[2021-05-13] MEDS: Lactated Ringers 1,000 ML 15 ML IV (06:15)
[2021-05-13 06:17] LABS: Internal QC Validated? YES +Cl - CLEAR BKGD; Pregnancy, Urine Negative Negative
--- NOTE | 2021-05-13 07:26 | PCM.DC ---
Discharge Instructions Diet Discharge Diet: No restrictions Activity Discharge Activity: Return to Normal Activity, May Not Drive (for two weeks or while taking narcotic pain medications.), May Shower and May Take a Tub Bath (in 7 days) May resume sexual activity in: 1 week Weight Bearing Status: Full weight bearing Dressing / Incision Call your doctor if you observe: Using more than 1 pad per hour, Shortness of breath, Chest pain and Uncontrolled pain Suture Line Care: Avoid Pulling/Pushing and Avoid Pinching/Bending Remove Dressing in: 1 week (if present) Cleanse incision/area with: Soap & Water and Keep Dressing Clean & Dry Follow Up Care Please Follow Up With: Aide Nick DO When: Call to make an appointment with your doctor for a follow up incision check in 1-2 weeks. Test Results: Test results from this visit will be discussed in further detail at your follow-up appointment, if applicable. Discharge Plan Admission Primary Reason for Your Visit: removal of fallopian tubes for sterilization Attending Provider: Aide Nick Primary Care Provider: Care Physician,Constance Primary Discharge Orders/Prescriptions Prescriptions: New oxycodone-acetaminophen [Percocet] 5-325 mg tablet 1 tab PO Q4H PRN (Reason: pain) 3 Days Qty: 18 RF: 0 Continued cyclobenzaprine 10 mg tablet 10 mg PO TID PRN (Reason: muscle spasm) Qty: 10 RF: 0 ibuprofen 600 mg tablet 600 mg PO Q6H PRN PRN (Reason: Pain Score 1-10/10) Qty: 20 RF: 0 Referrals / Follow Up: Care Physician,Constance Primary [Primary Care Provider] - Disposition Disposition (needs filled in before D/C Order can be placed): Home, Self Care
--- NOTE | 2021-05-13 07:30 | FALS_PTH ---
PATIENT: LUKE CAMPBELL LOC: [facility] U#:[id number] AGE/SX: 30/F ROOM: RE05/13/[address]: Dr. Aide Nick DO : 1990 BED: DIS: 05/13/2021 SPEC #: [id number] RECD: 05/13/21 11:32 STATUS: ELTON JOSE #: [id number] BASHIR: 05/13/21 07:[address]: Aide Nick DEPT: SURGICAL PATHOLOGY RECD BY: Alexis Pandya ENTERED: 05/13/21 11:32 SP TYPE: FALL TUBES OTHR DR: No Primary Care Phys Tissues: Fallopian tube Procedures: Surgery Specimen Level II HEADER OPERATION: Laparoscopic salpingectomy PRE-OP DIAGNOSIS: Ovarian cyst, contraceptive management TISSUE SUBMITTED: Bilateral fallopian tubes MICROSCOPIC DIAGNOSIS Bilateral fallopian tubes, salpingectomy: Bilateral fallopian tubes, no pathologic diagnosis. A paratubal cyst (2.5 cm in greatest dimension). DAVE:rosalind 05/16/2021 MICROSCOPIC DESCRIPTION Slides are reviewed. GROSS DESCRIPTION Received in fixative is one container labeled with the patient's name and designated bilateral fallopian tubes. The specimen consists of bilateral fallopian tubes including fimbrial ends. One of the fallopian tubes appear to be disrupted. One fallopian tube measures 5 cm in length and 0.3 cm in diameter. The second fallopian tube which is disrupted measures 5 cm in length and 0.3 cm in diameter. A paratubal cyst is also noted measuring 2.5 cm in greatest dimension. The paratubal cyst is collapsed without any cyst contents. The cyst wall is thin and measures 0.1 cm in thickness. The fallopian tubes are not identified as right or left. Sections reveal unremarkable cut surfaces. Card Player sections are submitted in two cassettes as follows: 1 - intact fallopian tube, 2 - second fallopian tube and paratubal cyst, entirely submitted. / DAVE:rosalind 05/13/2021 TC:5 CPT: 69023 x2
--- NOTE | 2021-05-13 07:32 | PCM.OP.BLANK ---
Problems Associated Problem List Diagnoses (1) Admission for sterilization: Operative Report Date of Procedure: 05/13/21 Preoperative diagnosis: desires permanent sterilization Postoperative diagnosis: desires permanent sterilization Surgeon: Aide Nick DO Neuropsychology Medical Consultant: DAMON Garduno Surgery: laparoscopic bilateral salpingectomy EBL: 5cc Urine output: 50cc specimens removed: bilateral fallopian tubes complications: none Details of procedure: Patient was taken in the operating room and was placed under general anesthesia was prepped and draped in normal sterile fashion in the dorsal lithotomy position. Bladder was drained of clear urine and SCDs were on preoperatively. Uterus was sounded and a uterine manipulator was placed after dilating. Attention was then paid to the abdominal portion of the procedure and the umbilicus was injected with Marcaine and after a 5 mm incision was made and a 5mm laparoscopic por was inserted under direct visualization into the abdomen. Abdomen was insufflated with CO2 gas and A left lower quadrant 5 mm port and a 5 mm port suprapubically were placed under direct visualization. Uterus was well visualized and bilateral fallopian tubes identified and bilateral tubes were elevated and transecting across the mesosalpinx and the attachment to the uterine corpus bilaterally the tubes were removed without complication. Excellent hemostasis was noted. Fallopian tubes were removed through the lower port sites without complication. The left fallopian tube contained a paratubal cyst that was ruptured without difficulty. Liver and upper abdomen were visualized notably within normal limits and no other gross abnormalities were seen in the abdomen. All instruments removed from the abdomen after gas was desufflated. Port sites were closed with 3-0 Monocryl Steri's and op sites were applied. All instruments removed from the vagina and patient was awoken and taken recovery in stable condition. Multi Select Codes Urinary/Genital Urinary/Genital CPT Codes: 85882 Laproscopic BS/O (laparoscopic bilateral salpingectomy )
[2021-05-13] MEDS: Lubricating Jelly 60 GM Tube 30 GM (07:40)
[2021-05-13] MEDS: Bupivacaine 0.25% 30 ML Vial (08:00)
[2021-05-13 08:19] VITALS: BP 141/89; BP 146/76; PULSE 103; RESP 18; TEMP 36.8; O2SAT 93
[2021-05-13 08:30] VITALS: BP 135/82; BP 146/76; PULSE 79; RESP 16; O2SAT 94
--- NOTE | 2021-05-13 08:32 | SUR.PHASEI ---
DR REPORTED PT IS TO BE DISCHARGED HOME
[2021-05-13 08:45] VITALS: BP 139/80; BP 146/76; PULSE 73; RESP 16; O2SAT 96
[2021-05-13 08:47] VITALS: BP 134/81; BP 146/76; PULSE 80; RESP 16; TEMP 36.8; O2SAT 97
[2021-05-13 09:23] VITALS: BP 132/90; BP 146/76; PULSE 64; RESP 16; TEMP 36.2; O2SAT 99
== END 2021-05-13 23:59 | disposition home or self-care (01) ==
LOC: SDC 05:55 → AC 07:27
PROVIDERS: Anesthesiology; Referring Provider Obstetrics & Gynecology; Visit Provider Obstetrics & Gynecology
PROC: (CPT 58661; principal; 2021-05-13 07:15)
DX: Z30.2 Encounter for sterilization (principal); N83.8 Other noninflammatory disorders of ovary, fallopian tube and broad ligament
CPT/HCPCS: 58661; 80048; 80076; 81025; 85027; 85610; 88302; J7120; J2405

== ENCOUNTER → 2024-11-17 | Outpatient (CLI) | payer MEDICAID, SELFPAY ==
[2024-11-20 05:07] LABS: Chlamydia By Nucleic Acid AMP Negative (Negative); Gonococcus By Nucleic Acid AMP Negative (Negative)
== END | disposition home or self-care (01) ==
LOC: LABSPEC 16:12
PROVIDERS: Referring Provider Nurse Practitioner Family; Visit Provider Nurse Practitioner Family
DX: Z20.2 Contact with and (suspected) exposure to infections with a predominantly sexual mode of transmission (principal)
CPT/HCPCS: 87491; 87591

== ENCOUNTER → 2024-11-26 | Outpatient (CLI) | payer MEDICAID, SELFPAY ==
[2024-11-26 13:52] LABS: HIV Nonreactive (Nonreactive); Hepatitis B Surface Antigen Nonreactive (Nonreactive); Syphilis Antibodies Nonreactive (Nonreactive)
[2024-11-27 16:09] LABS: HCV Quant. RNA PCR HCV Not Detected IU/mL (.)
[2024-11-28 11:08] LABS: HPV APTIMA, High Risk Negative (Negative)
== END | disposition home or self-care (01) ==
PROVIDERS: PCP Nurse Practitioner Family; Referring Provider Nurse Practitioner Family; Visit Provider Nurse Practitioner Family
DX: Z20.2 Contact with and (suspected) exposure to infections with a predominantly sexual mode of transmission (principal); Z12.4 Encounter for screening for malignant neoplasm of cervix
CPT/HCPCS: 36415; 86695; 86696; 86703; 86780; 87340; 87522; 87624; 88175; G0145

== ENCOUNTER → 2024-12-09 | Outpatient (CLI) | payer MEDICAID, SELFPAY ==
--- NOTE | 2024-12-09 14:30 | US_ITS ---
PROCEDURE: PELVIC W/ TRANSVAGINAL REASON FOR EXAM: PELVIC PAIN TECHNIQUE: Procedure Code: [id number] Modality: US Procedure: PELVIC W/ TRANSVAGINAL COMPARISON: Prior study dated April 18, 2021. FINDINGS: LMP: October 25, 2024 Measurements: Uterus: 9.2 cm x 6.2 cm x 4.4 cm with a volume of 132.55 mL Endometrial Thickness: 11.1 mm. It is hyperechoic. Right Ovary: 3.1 cm x 1.9 cm x 1.5 cm with a volume of 4.67 mL. Left Ovary: 2.7 cm x 2.5 cm x 1.9 cm with a volume of 6.75 mL. TRANSABDOMINAL: Uterus: Normal size, myometrial echotexture, and contour. Nabothian cyst. Endometrium: Endometrium measures 11.1 mm. This most likely represents the patient's menstrual phase. Right ovary: Normal size and echotexture. Left ovary: Normal size and echotexture. Other: No large pelvic mass identified. Transvaginal sonography was performed to better visualize the endometrium. TRANSVAGINAL: Uterus: Anteverted. Nabothian cysts Endometrium: Normal echotexture. Right ovary: Normal size and echotexture. Left ovary: Normal size and echotexture. Other adnexal findings: None. Cul-de-sac: No free intraperitoneal fluid identified. Tenderness: No tenderness US/Pelvic w/ Transvaginal IMPRESSION: NORMAL TRANSABDOMINAL AND TRANSVAGINAL PELVIC ULTRASOUND. Reading Location: [facility]
== END | disposition home or self-care (01) ==
LOC: US 14:27
PROVIDERS: PCP Nurse Practitioner Family; Referring Provider Nurse Practitioner Family; Visit Provider Nurse Practitioner Family
DX: R10.2 Pelvic and perineal pain (principal)
CPT/HCPCS: 76830; 76856